=== PATIENT | female | born 1975 | race African-American/Black ===

== ENCOUNTER 2019-04-26 10:10 | Day surgery (SDC) | payer OTHER ==
[2019-04-26] VITALS (9 sets, daily range): BP systolic 126–148; BP diastolic 69–92
[~2019-04-26] VITALS: Ht 157.5 cm; Wt 72.6 kg
--- NOTE | 2019-04-26 07:38 | Pre-Procedure Note/Attestation ---
Pre-Procedure Note/Attestation Complete Prior to Procedure Planned Procedure: right Procedure Narrative: shoulder arthroscopic, sad Indications for Procedure Pre-Operative Diagnosis: right shoulder biceps tear, impingement Attestation I attest that I discussed the nature of the procedure; its benefits; risks and complications; and alternatives (and the risks and benefits of such alternatives ), prior to the procedure, with the patient (or the patient's legal solar manufacturer's representative). I attest that, if there was a reasonable possibility of needing a blood transfusion, the patient (or the patient's legal solar manufacturer's representative) was given the [facility] standardized written summary, pursuant to the [place]cl[place] Blood Safety Act ([place] Health and Safety Code # 1645, as amended). I attest that I re-evaluated the patient just prior to the surgery and that there has been no change in the patient's H&P, except as documented below: Adolph Herrera MD Apr 26, 2019 07:38
--- NOTE | 2019-04-26 07:38 | Operative Note - PDOC ---
Operative Note Operative Note Pre-op Diagnosis: right shoulder biceps tear, impingement Procedure: see op report Post-op Diagnosis: same as pre-op plus Operative Findings: consistent w/pre-op dx studies Anesthesia: regional Specimen: none Complications: none Condition: stable Estimated Blood Loss: none Implant(s) used?: No Adolph Herrera MD Apr 26, 2019 07:38
[~2019-04-26 10:10] MED LIST: D5 1/2NS 1,000 ML IV SCH; HYDROcodone/Acetamin 5/325 tab ORAL PRN; HYDROmorphone 1mg/ml Carpuject SUBQ PRN; Tylenol #3 tab (300mg/30mg) ORAL PRN; ceFAZolin 1gm IVPB IVPB ONE; celeBREX 200mg Cap **SURGERY PATIENTS ONLY ORAL ONE; oxyCONTIN 20mg tab ORAL ONE
[2019-04-26 10:32] LABS: APPEARANCE,URINE CLEAR; BILIRUBIN, URINE NEGATIVE (NEGATIVE); COLOR,URINE PALE YELLOW; GLUCOSE, URINE (UA) NEGATIVE (NEGATIVE); KETONES,URINE NEGATIVE (NEGATIVE); LEUKOCYTE ESTERASE ,URINE 1+ (NEGATIVE); NITRITE,URINE NEGATIVE (NEGATIVE); PH,URINE 6 (4.5-8.0); PROTEIN,URINE NEGATIVE (NEGATIVE); UROBILINOGEN,URINE 1 MG/DL (0.0-1.0)
[2019-04-26] MEDS ORDERED: oxyCONTIN 20mg tab ORAL ONE (11:02)
[2019-04-26] MEDS ORDERED: celeBREX 200mg Cap **SURGERY PATIENTS ONLY ORAL ONE (11:02)
[2019-04-26] MEDS ORDERED: Bupivacaine w/Epi 0.5% 30ml Vial INJ ONE (12:48)
[2019-04-26] MEDS ORDERED: EPINEPHrine 1mg/1ml Amp ONE (12:48)
[2019-04-26] MEDS ORDERED: Kenalog-40 1ml Vial ONE (12:49)
[2019-04-26] MEDS ORDERED: Zemuron 50mg/5ml Inj IV ONE (12:49)
[2019-04-26] MEDS ORDERED: Ketorolac 30mg Inj ONE (12:49)
[2019-04-26] MEDS ORDERED: Midazolam 2mg/2ml Inj ONE (13:00)
[2019-04-26] MEDS ORDERED: LR 1000ml ONE (13:00)
[2019-04-26] MEDS ORDERED: fentaNYL 100 mcg/2 mL IV ONE ×2 (13:00→13:32)
[2019-04-26] MEDS ORDERED: NS Irrig 4000ml IRRIG ONE (13:00)
[2019-04-26] MEDS ORDERED: Ropivacaine 5mg/ml Vial 30ml INJ ONE (14:03)
[2019-04-26] MEDS ORDERED: Neostigmine 1mg/ml 10ml Inj ONE (14:07)
[2019-04-26] MEDS ORDERED: Propofol 200mg/20ml IV ONE (14:07)
[2019-04-26] MEDS ORDERED: Metoclopramide 10mg/2ml Inj ONE (14:07)
[2019-04-26] MEDS ORDERED: Lidocaine 1% MPF 10mg/ml 5ml ONE (14:07)
[2019-04-26] MEDS ORDERED: Glycopyrrolate 0.2mg/ml 1ml Vial ONE (14:07)
[2019-04-26] MEDS ORDERED: Acetaminophen (Non formulary) 100 ML IV ONE (14:15)
[2019-04-26] MEDS ORDERED: Metoclopramide 10mg/2ml Inj IVP PRN (14:15)
[2019-04-26] MEDS ORDERED: fentaNYL 100 mcg/2 mL IV PRN (14:15)
--- NOTE | 2019-04-26 14:39 | Anethesia Preoperative Eval ---
Anesthesia Pre-op PMH/ROS General Date of Evaluation: Apr 26, 2019 Time of Evaluation: 12:40 Anesthesiologist: keila ASA Score: ASA 2 Mallampati Score Class I : Soft palate, uvula, fauces, pillars visible Class II: Soft palate, uvula, fauces visible Class III: Soft palate, base of uvula visible Class IV: Only hard plate visible Mallampati Classification: Class II Surgeon: aydee Diagnosis: nerve impingement Surgical Procedure: righer Anesthesia History: none Social History: smoking, current smoker Family History: no anesthesia problems Allergies: Coded Allergies: GRASS POLLEN (Verified Allergy, Intermediate, watery eyes; sneezing, ) Medications: see eMAR Patient NPO?: Yes NPO Date: Apr 26, 2019 NPO Time: 00:01 Past Medical History Cardiovascular: Denies: HTN, CAD, [place], valve dz, arrhythmia, other Pulmonary: Reports: other; Denies: asthma, COPD, [place] Gastrointestinal/Genitourinary: Denies: GERD, CRI, ESRD, other Neurologic/Psychiatric: Denies: dementia, CVA, depression/anxiety, TIA, other Endocrine: Denies: DM, hypothyroidism, steroids, other HEENT: Denies: cataract (L), cataract (R), glaucoma, LIME (L), LIME (R), other Hematology/Immune: Denies: anemia, DVT, bleeding disorder, other PSxH Narrative: denies Anesthesia Pre-op Phys. Exam Physician Exam Last Vital Signs Date Time Temp Pulse Resp B/P (MAP) Pulse Ox O2 Delivery O2 Flow Rate FiO2 04/26/19 10:50 97.6 72 18 141/92 100 Room Air Constitutional: NAD Neurologic: CN 2-12 intact Cardiovascular: RRR Respiratory: CTA Airway Exam Mallampati Classification 2 Mallampati Score: Class II MO: full Anesthesia Pre-op A/P Labs Urine Test Test 04/26/19 10:15 Urine HCG, Qualitative Negative (NEGATIVE) Studies Pre-op Studies: EKG - sr Risk Assessment & Plan Assessment: denies any recent changes in health Plan: General /Peripheral block Status Change Before Surgery: No Pre-Antibiotics Drug: ancef Given Within 1 Hr of Incision: Yes Time Given: 13:20 Coco Lopez CRNA Apr 26, 2019 14:39
--- NOTE | 2019-04-26 14:40 | Immediate Post-Op Evaluation ---
Immediate Post-Op Evalulation Immediate Post-Op Evalulation Procedure: right shoulder arthroscopy Date of Evaluation: Apr 26, 2019 Time of Evaluation: 14:40 IV Fluids: 600 Blood Pressure Systolic: 137 Blood Pressure Diastolic: 85 Pulse Rate: 86 Respiratory Rate: 15 O2 Sat by Pulse Oximetry: 100 Temperature (Fahrenheit): 97.0 Nausea: No Vomiting: No Complications none Patient Status: awake, reacts, patent Hydration Status: adequate Drug: ancef Given Within 1 Hr of Incision: Yes Time Given: 13:20 Coco Lopez CRNA Apr 26, 2019 14:40
--- NOTE | 2019-04-26 16:15 | 48 Hour Post Anesthesia Eval ---
Post Anesthesia Evaluation Procedure: right shoulder arthroscopy Date of Evaluation: Apr 26, 2019 Time of Evaluation: 16:14 Blood Pressure Systolic: 137 0: 69 Pulse Rate: 67 Respiratory Rate: 14 O2 Sat by Pulse Oximetry: 98 Airway: patent Nausea: No Vomiting: No Pain Intensity: 0 Hydration Status: adequate Post-Anesthesia Complications: none Follow-up care needed: N/A Coco Lopez CRNA Apr 26, 2019 16:15
--- NOTE | 2019-04-27 04:15 | Operative Note - Dictated ---
DATE OF OPERATION: 04/26/2019 PREOPERATIVE DIAGNOSES: 1. Right shoulder SLAP tear. 2. Right shoulder impingement syndrome. POSTOPERATIVE DIAGNOSES: 1. Right shoulder SLAP tear. 2. Right shoulder impingement syndrome. PROCEDURES: 1. Right shoulder arthroscopy, extensive intra-articular debridement. 2. Right shoulder subacromial decompression bursectomy. SURGEON: Adolph Herrera M.D. ANESTHESIA: Interscalene with general. INDICATION FOR PROCEDURE: The patient is a pleasant 43-year-old female who had a traumatic right shoulder pain. Subsequently, he had an MRI, which showed a superior labral tear with some evidence of impingement syndrome. She failed conservative treatment and elected to undergo right shoulder arthroscopy, possible repair versus debridement, superior labral tear with concurrence of decompression bursectomy. Risks, limitations, expectations, and complications of the procedure were discussed in detail including continued pain, need for future surgery, risk of anesthesia, medical complications, DVT, PE, and mortality risks. All questions were addressed. DESCRIPTION OF PROCEDURE: After informed consent was obtained, the patient was brought to the operating room and placed under interscalene general anesthesia. The patient was carefully placed in beach-chair position. Right shoulder was prepped and draped in a sterile manner. Time-out was performed. Inferolateral stab incision was then made. Trocar was introduced into the glenohumeral joint. Systematic tour of the shoulder was performed. There was grade 4 superior labral tear. Medial working portal was established. Debridement of the labral tear was performed. The superior labrum insertion along the superior glenoid was evaluated and noted to be intact. The subscapularis was intact. The undersurface of the acromion was intact. There were no intra-articular loose bodies. The camera was repositioned subacromial bursal tissue. the acromion was identified. Acromioplasty was started from lateral to medial and completed from posterior to anterior. Once that was done, the bursectomy was completed posteriorly. Instruments were removed. Portal sites were closed with Monocryl sutures. The patient was awoken and taken to the recovery room with stable vital signs. ESTIMATED BLOOD LOSS: None. COMPLICATIONS: None. SPECIMENS: None. IMPLANTS: None. Adolph Herrera M.D. DR: SABAS JOB#: [id number] CC:
== END 2019-04-26 16:25 | disposition home or self-care (01) ==
LOC: SUR 10:10
DX: S46.911A Strain of unspecified muscle, fascia and tendon at shoulder and upper arm level, right arm, initial encounter (principal); M75.41 Impingement syndrome of right shoulder; X58.XXXA Exposure to other specified factors, initial encounter; Y92.9 Unspecified place or not applicable; Z91.09 Other allergy status, other than to drugs and biological substances
CPT/HCPCS: 29823; 81003; 81025; J0171; J0690; J1885; J2250; J2405; J2704; J2710; J2765; J2795; J3010; J3301; 94003; 94150